=== PATIENT | male | born 1990 | race Caucasian/White ===

== ENCOUNTER 2019-02-04 14:56 | Emergency (ER) | payer MEDICARE, MEDICAID, SELFPAY ==
[2019-02-04 15:11] VITALS: BP 121/62; PULSE 80; RESP 16; TEMP 36.3; O2SAT 98
[2019-02-04] MEDS: KETOROLAC 60 MG/2 ML VIAL IM (18:41)
[2019-02-04 19:02] VITALS: BP 124/65; PULSE 62; TEMP 36.6; O2SAT 97
--- NOTE | 2019-02-04 20:54 | ED_ITS ---
HPI - Dental/Oral <MONTRELL Heck - Last Filed: 02/04/19 20:54> General Chief complaint: Dental/Oral Stated complaint: states oral infection Time Seen by Provider: 02/04/19 18:26 Source: patient and family Mode of arrival: ambulatory Limitations: no limitations History of Present Illness HPI Narrative: The patient is a 28-year-old male current smoker who presents with a significant other and child for the chief complaint of dental pain. He complains of swelling and a probable infection on his right lower rear molar. Took ibuprofen and Tylenol for it last night but has had the day. He denies any fevers, nausea vomiting diarrhea or other symptoms. he has applied ice. Related Data Previous Rx's Medication Instructions Recorded ketorolac 10 mg PO Q6H PRN 2 Days #8 tab 02/04/19 penicillin V potassium 500 mg PO QID #40 tab 02/04/19 Allergies Allergy/AdvReac Type Severity Reaction Status Date / Time No Known Drug Allergies Allergy Verified 02/04/19 15:20 Review of Systems <MONTRELL Heck - Last Filed: 02/04/19 20:54> Constitutional Denies body ache(s), Denies chills, Denies fatigue, Denies fever(s) and Denies headache(s) Eyes Reports system reviewed and no additional complaints, except as docu ENT Ears, Nose, Mouth, and Throat: Reports dental pain, Reports facial pain, Denies headache(s), Reports mouth pain, Denies nasal discharge, Denies neck mass, Denies neck pain, Denies nose pain and Denies odynophagia Cardiovascular Reports system reviewed and no additional complaints, except as docu Respiratory Reports system reviewed and no additional complaints, except as docu Gastrointestinal Gastrointestinal: Denies constipation, Denies diarrhea, Denies nausea, Denies odynophagia and Denies vomiting Musculoskeletal Reports system reviewed and no additional complaints, except as docu and Denies neck pain Neurologic Reports system reviewed and no additional complaints, except as docu and Denies headache(s) Psychiatric Reports system reviewed and no additional complaints, except as docu Endocrine Denies fatigue PFSH <MONTRELL Heck - Last Filed: 02/04/19 20:54> Social History Smoking Status: Current every day smoker Social History Smoking Status: Current every day smoker Exam <DANG Heck - Last Filed: 02/04/19 20:54> Initial Vital Signs Initial Vital Signs: Vital Signs Temperature 97.3 F L 02/04/19 15:11 Pulse Rate 80 02/04/19 15:11 Respiratory Rate 16 02/04/19 15:11 Blood Pressure 121/62 02/04/19 15:11 Pulse Oximetry 98 02/04/19 15:11 Const General: cooperative and well developed Nutritional Appearance: well nourished Orientation: alert, awake, oriented x3 and not confused HENSC Nose: external nose normal and nares normal Face and sinus: normal facial exam Teeth and gingiva: abnormal dentition, abnormal gingiva, abnormal tooth or associated gingiva lower right first molar tender and with associated gingival edema; without associated gingival fluctuance and poor dentition Throat: posterior oropharynx normal, tonsils normal, uvula midline and abnormal tonsil Resp Effort & Inspection: normal respiratory effort, normal respiratory pattern, no cough, respiratory effort not decreased, no grunting and not labored Auscultation: clear to auscultation bilaterally Cardio Rate: regular rate Rhythm: regular rhythm GI Palpation: soft Auscultation: normal bowel sounds <DO Fiorella Denise Last Filed: 02/05/19 00:44> Initial Vital Signs Initial Vital Signs: Vital Signs Temperature 97.3 F L 02/04/19 15:11 Pulse Rate 80 02/04/19 15:11 Respiratory Rate 16 02/04/19 15:11 Blood Pressure 121/62 02/04/19 15:11 Pulse Oximetry 98 02/04/19 15:11 Course <DANG Heck - Last Filed: 02/04/19 20:54> Orders Ordered: Discontinued Medications Ketorolac Tromethamine (Toradol) 60 mg IM NOW ONE Stop: 02/04/19 18:38 Last Admin: 02/04/19 18:41 Dose: 60 mg Vital Signs - 8 hr 02/04/19 19:02 Temperature 97.9 F Pulse Rate 62 Blood Pressure 124/65 Pulse Oximetry 97 <Trevor Serrano DO - Last Filed: 02/05/19 00:44> Orders Ordered: Discontinued Medications Ketorolac Tromethamine (Toradol) 60 mg IM NOW ONE Stop: 02/04/19 18:38 Last Admin: 02/04/19 18:41 Dose: 60 mg Vital Signs - 8 hr 02/04/19 19:02 Temperature 97.9 F Pulse Rate 62 Blood Pressure 124/65 Pulse Oximetry 97 MDM - Dental/Oral <KITTY HeckP-BC - Last Filed: 02/04/19 20:54> [facility] Narrative Medical decision making narrative: The patient is a 28 year male who presents with a dental infection. He does not have any allergies, I started him on penicillin. He was given Toradol IM in the emergency department. I discussed at length and all using other NSAIDs with his prescription of Toradol including ibuprofen and naproxen. Patient plans on following up with his dentist as soon as possible. He even went there today, and came here after he felt that they were closed. Discussed at length monitoring for fever, worsening or no improvement be evaluated if these occur. Patient has no questions or concerns upon discharge. Discharge Plan Departure Patient Disposition: Home Clinical Impression: Dental infection Discharge Date/Time: 02/04/19 19:02 Interventions: ED Discharge Assessment Last Done: 02/04/19 19:02 Instructions: Tooth Abscess, DI for Dental Pain Activity Restrictions/Additional Instructions: I am starting you on antibiotics for her dental infection. I have also given you Toradol for pain. please do not combine this with Aleve naproxen ibuprofen or any other NSAIDs. Please monitor for fever, vomiting or diarrhea as these are signs of a systemic infection. Please be evaluated if these occur. Please follow up with your r dentist as soon as possible. Please come back to the emergency department for any acute concerns. Prescriptions: New penicillin V potassium 500 mg tablet 500 mg PO QID Qty: 40 RF: 0 ketorolac 10 mg tablet 10 mg PO Q6H PRN (Reason: pain) 2 Days Qty: 8 RF: 0 <Trevor Serrano DO - Last Filed: 02/05/19 00:44> [facility] Attending Alessia Attestation: I was immediately available in the department for consultation. Documentation has been reviewed. I agree with assessment and plan.
== END 2019-02-04 19:02 | disposition home or self-care (01) ==
PROVIDERS: Emergency Provider Nurse Practitioner Family
DX: K04.7 Periapical abscess without sinus (principal)
CPT/HCPCS: 96372; 99282; 99283; J1885